=== PATIENT | female | born 1965 | race Caucasian/White ===

== ENCOUNTER 2018-11-05 10:17 | Emergency (ER) | payer OTHER ==
[~2018-11-05] VITALS: Ht 152.4 cm; Wt 66.7 kg
[2018-11-05] MEDS ORDERED: PROTONIX20 MG (10:21)
[2018-11-05] MEDS ORDERED: CARAFATE1 GM (10:21)
== END 2018-11-05 13:37 | disposition home or self-care (01) ==
LOC: ER 10:17
DX: K52.89 Other specified noninfective gastroenteritis and colitis (principal)